=== PATIENT | male | born 2000 | race Caucasian/White ===

== ENCOUNTER 2022-12-04 09:33 | Outpatient (CLI) | payer OTHER ==
--- NOTE | 2022-12-04 16:49 | XRAY Report ---
PROCEDURE: Ankle 3 View RT INDICATIONS: SPRAIN OF OTHER LIGAMENT OF RIGHT ANKLE TECHNIQUE: 3 views of the ankle were acquired. COMPARISON: None. FINDINGS: Bones: Slight irregularity at the distal fibular tip. Ankle mortise is normally aligned. No suspici ous bony lesions. Soft tissues: Lateral malleolar edema is present.. Achilles tendon appears normal. IMPRESSION: Lateral malleolar edema. Slight irregularity of the distal fibular tip. Avulsion fracture cannot be e xcluded. Reviewed by: Cori Cuellar MD on 12/04/2022 4:48 PM PDT Approved by: Cori Cuellar MD on 12/04/2022 4:48 PM PDT Station ID: [id number]
== END 2022-12-04 09:34 | disposition home or self-care (01) ==
LOC: DI 09:33
PROVIDERS: ATTEND Physician Assistant Medical
DX: S93.491A Sprain of other ligament of right ankle, initial encounter (principal)